=== PATIENT | female | born 1990 | race Two or more races ===

== ENCOUNTER 2019-04-18 06:46 | Emergency (ER) | payer MEDICAID ==
[~2019-04-18] VITALS: Ht 165.1 cm; Wt 59.1 kg
[~2019-04-18 06:46] MED LIST: FAMO-128 PO; HYDR-3965 PO; ONDA4TAB6 PO; PENI500T2 PO; ZOF4T PO
[2019-04-18] MEDS ORDERED: HYDROcodone/acetaminophen 5mg/325mg tablet PO ONE (07:10)
[2019-04-18] MEDS ORDERED: proparacaine 0.5% ophthalmic drops 15ml EACHEYE ONE (07:10)
--- NOTE | 2019-04-18 07:13 | NUR ---
PT CONTINUES TO WASH FACE AND EYES AT SINK
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
--- NOTE | 2019-04-18 08:00 | NUR ---
PT'S BOYFRIEND ARRIVES TO ROOM. BODY SOAP IS PROVIDED AND PT'S BOYFRIEND IS WASHING PT WITH THE SOAP AND BODY WIPES. PT IS FEELING BETTER. BRING PT CLEAN CLOTHES FROM OVERFLOW SUPPLY.
[2019-04-18 08:12] VITALS: BP 105/61
--- NOTE | 2019-04-18 08:13 | NUR ---
PT IS OFFERED A SHOWER BUT REFUSES, FEELING BETTER, WANTS TO GO HOME AND WILL SHOWER THERE.
== END 2019-04-18 08:19 | disposition home or self-care (01) ==
LOC: ER 06:47
DX: T59.891A Toxic effect of other specified gases, fumes and vapors, accidental (unintentional), initial encounter (principal); Z98.890 Other specified postprocedural states; Z88.5 Allergy status to narcotic agent; Z79.899 Other long term (current) drug therapy; Y92.89 Other specified places as the place of occurrence of the external cause
CPT/HCPCS: 99283